=== PATIENT | female | born 2005 | race Caucasian/White ===

== ENCOUNTER 2023-09-25 11:16 | Emergency (ER) | payer BC, SELFPAY ==
[2023-09-25 11:26] VITALS: BP 118/64; PULSE 58; RESP 20; TEMP 37; O2SAT 100
--- NOTE | 2023-09-25 11:51 | ED.SKABFB ---
HPI - Skin/Abscess/Foreign Bdy General Chief complaint: Skin/Abscess/Foreign Body Stated complaint: thinks infantigo Time Seen by Provider: 09/25/23 11:51 Source: patient, RN notes reviewed and old records reviewed Mode of arrival: ambulatory Limitations: no limitations History of Present Illness HPI narrative: 18 year old female accompanied by mother resents to express care with complaints of lesion to the right side of her face with some crusting and itching which she noted this morning. Patient reports that [facility] [employer] [facility] [employer] [facility] and also [employer] and [employer] and is around the mats at different facilities. She reports that she had similar lesion to the left side of her face in January of 2023 which was diagnosed as impetigo. complaint: lesion (face) Onset (ago): day(s) (today ) Tetanus up to date: yes Quality: pruritic Treatments prior to arrival: other (cleansed with soap and water) Related Data Allergies Allergy/AdvReac Type Severity Reaction Status Date / Time No Known Allergies Allergy Verified 09/25/23 11:50 Review of Systems Review of Systems: CONSTITUTIONAL: Denies fever, chills, or sweats. CARDIOVASCULAR: Denies chest pain, palpitations, or edema. RESPIRATORY: Denies cough or dyspnea. SKIN: Reports red lesion to right side of face noted this morning itchy MUSCULOSKELETAL: Denies joint pain or myalgia. NEUROLOGIC: Denies headache, numbness, or weakness. All systems reviewed & are unremarkable except as noted in HPI and below PMFSH Past Medical History Medical History (Updated 09/27/23 @ 10:12 by Cyndee Reynolds NP) Impetigo Social History Social History (Updated 09/27/23 @ 10:11 by Cyndee Reynolds NP) Smoking status: Never smoker Alcohol intake: unknown Substance use type: does not use Living arrangements: with family Occupation/Education: student Gender identity (if verbalized by the patient): Female Comments At time of signature, agree with nursing past medical, surgical, social and family history. There is no relevant family history pertinent to the presenting complaint Exam Narrative: GENERAL: Well-appearing, well-nourished, and in no acute distress. HEAD: Normocephalic, atraumatic. EYES: PERRLA, conjunctivae clear, and EOMI. ENT: Mucous membranes moist. Oropharynx without edema, erythema or lesions. NECK: Supple. No lymphadenopathy CHEST: Clear to auscultation. No respiratory distress.SAO2 100% on room air HEART: Regular rate and rhythm. SKIN: Warm, dry.? 0.25 lesion to right cheek area with some crusting reports itching NEURO:? Alert and oriented PSYCH: Normal mood and affect Course Course Emergency Course: Patient is aware of diagnosis, understands and agrees to treatment plan.? Anticipatory guidance given.? Patient agrees to follow-up as directed and is aware of reasons to seek care at the emergency department. Portions of this record may have been created with voice recognition software Level of Care: Express Care Visit Vital Signs Vital signs: Vital Signs Temperature 37.0 C 09/25/23 11:26 Pulse Rate 58 L 09/25/23 11:26 Respiratory Rate 09/25/23 11:26 Blood Pressure 118/64 09/25/23 11:26 Pulse Oximetry 100 09/25/23 11:26 Oxygen Delivery Room Air 09/25/23 11:26 Temperature 37.0 C 09/25/23 11:26 Pulse Rate 58 L 09/25/23 11:26 Respiratory Rate 20 09/25/23 11:26 Blood Pressure 118/64 09/25/23 11:26 Pulse Oximetry 100 09/25/23 11:26 Oxygen Delivery Room Air 09/25/23 11:26 Reviewed MDM - Skin/Abscess/Foreign Bdy MDM Narrative Medical decision making narrative: Does not appear at this time to be erythema multiforme, bullous, SJS, TEN; no evidence at this time to suggest RMSF, endocarditis or Lyme disease; patient looks well, nontoxic and is tolerating oral intake; no neurologic signs or symptoms; no headache, photophobia or neck pain; afebrile; appropriate for initial outpatie
== END 2023-09-25 12:07 | disposition home or self-care (01) ==
PROVIDERS: Emergency Provider Registered Nurse
DX: L01.00 Impetigo, unspecified (principal)
CPT/HCPCS: 99213; G0463

== ENCOUNTER 2024-03-10 13:16 | Emergency (ER) | payer BC, SELFPAY ==
[2024-03-10 13:30] VITALS: BP 109/70; PULSE 80; RESP 16; TEMP 36.7; O2SAT 100
--- NOTE | 2024-03-10 13:59 | ED.URI ---
HPI - URI/Sore Throat General Chief Complaint: Upper Respiratory Infection Stated Complaint: Sore Throat/Congestion/Cough/Chest Pain Time Seen by Provider: 03/10/24 13:43 Source: patient, family, RN notes reviewed and old records reviewed Mode of arrival: ambulatory Limitations: no limitations History of Present Illness HPI Narrative: 18 year old female accompanied by mother presents to express care with complaints of sore throat, cough, fatigue,sinus pressure, headaches for the past 4 days. Patient reports that during the night she was having some upper chest pain that was intermittent and stabbing, denies any shortness of breath or any radiation of discomfort. Patient reports that she has been traveling to different schools doing [employer] this summer and has had known exposure to mono and strep. Patient reports that she has been taking DayQuil, NyQuil and Mucinex for her symptoms, denies any known fevers or any chills or body aches. MD elicited complaint: cough, sore throat, rhinorrhea, nasal congestion and other (headaches, intermittent chest pain since last night) Onset (ago): day(s) (4) Pain scale (0-10): 7 Able to tolerate fluids by mouth: Yes Treatments prior to arrival: other (DayQuil, NyQuil, and Mucinex) Related Data Allergies Allergy/AdvReac Type Severity Reaction Status Date / Time No Known Allergies Allergy Verified 09/25/23 11:50 Review of Systems Review of Systems: CONSTITUTIONAL: Denies malaise, chills, sweats, or fever.reports fatigue EYES: Denies visual changes, redness, or discharge. ENT: Reports rhinorrhea, congestion, sinus pain,no otalgia and positive for sore throat. CARDIOVASCULAR:intermittent upper chest pain ,no palpitations, or edema. RESPIRATORY: Reports cough.? Denies dyspnea. GASTROINTESTINAL: Denies abdominal pain, nausea, vomiting, diarrhea SKIN: Denies rash or itching. MUSCULOSKELETAL: Denies myalgia. NEUROLOGIC:Reports headache. All systems reviewed & are unremarkable except as noted in HPI and below PMFSH Past Medical History Medical History (Updated 03/12/24 @ 09:06 by Cyndee Reynolds NP) Impetigo Social History Social History (Updated 09/27/23 @ 10:11 by Cyndee Reynolds NP) Smoking status: Never smoker Alcohol intake: unknown Substance use type: does not use Living arrangements: with family Occupation/Education: student Gender identity (if verbalized by the patient): Female Comments At time of signature, agree with nursing past medical, surgical, social and family history. There is no relevant family history pertinent to the presenting complaint Exam Narrative: GENERAL: Well-appearing, well-nourished, and in no acute distress.reports fatigue HEAD: Normocephalic EYES: PERRLA, conjunctivae clear ENT: Nares clear, turbinates edematous and erythematous, clear discharge. Mucous membranes moist. TM pearly soto with dull light reflex bilaterally; no tragal tenderness. Oropharynx erythematous without lesions. Tonsils not enlarged and without exudate, no drooling, no hoarseness, no trismus, uvula midline. NECK: Supple. No lymphadenopathy CHEST: Clear to auscultation, breath sounds equal. No wheezing, rhonchi, rales, or stridor. No respiratory distress, speaks in full sentences.cough noted SAO2 100% on room air no tachypnea HEART: Regular rate and rhythm. No murmur heard. reports of intermittent sharp upper chest pains aggravated with cough, no radiation of pain SKIN: Warm, dry, no rash. NEURO: Alert and oriented x3. PSYCH: Normal mood and affect Course Course Emergency Course: Patient is aware of diagnosis, understands and agrees to treatment plan.? Anticipatory guidance given.? Patient agrees to follow-up as directed and is aware of reasons to seek care at the emergency department. Portions of this record may have been created with voice recognition software Level of Care: Express Care Visit Vital Signs Vital signs: Vital
[2024-03-10 14:27] LABS: EDMONONEGPOS Negative; EDSTREPNEGPOS1 Presumptive Negative
== END 2024-03-10 14:50 | disposition home or self-care (01) ==
PROVIDERS: Emergency Provider Registered Nurse
DX: M94.0 Chondrocostal junction syndrome [Tietze] (principal); R05.1 Acute cough
CPT/HCPCS: 36416; 86308; 87081; 87880; 99213; G0463